=== PATIENT | female | born 1950 | race Caucasian/White ===

== ENCOUNTER 2020-09-01 14:39 | Outpatient (CLI) | payer MEDICARE, SELFPAY ==
--- NOTE | ~2020-09-01 | MM_ITS ---
EXAMINATION: MM screening bereket BI w carlos HISTORY: Screening TECHNIQUE: Craniocaudal and mediolateral oblique 3-D tomosynthesis images were obtained and synthetic 2-D images were generated. CAD analysis was submitted and interpreted. COMPARISON: Comparison to multiple prior studies sequentially, with oldest reviewed study dated 08/2011. BREAST PARENCHYMAL COMPOSITION: Breast composed of scattered areas of fibroglandular density. FINDINGS: There is a chronic mass in the central aspect of the right breast with new associated clust ered calcifications. The left breast is stable without evidence for malignancy. IMPRESSION: 1. New cluster of calcifications associated with chronic right breast mass located centrally. 2. Additional mammographic views and possible breast ultrasound are recommended. BI-RADS Category 0: Incomplete: Needs additional imaging evaluation. Reviewed, dictated and finalized at location A. IMPRESSION: 1. New cluster of calcifications associated with chronic right breast mass loca jun centrally. 2. Additional mammographic views and possible breast ultrasound are recommended . BI-RADS Category 0: Incomplete: Needs additional imaging evaluation.
--- NOTE | ~2020-09-01 | DEXA_ITS ---
Bone Density Report Name: Hawa Huynh Age: 70 Sex: Female Ethnicity: White Date of : 1950 Indication: postmenopausal; Referring Provider: shine velasquez Study: Bone densitometry was performed. Exam Date: September 01, 2020 Accession number: [id number] Bone Density: Region BMD T-score Z-score Classification AP Spine (L1-L4) 0.991 -0.5 1.6 Normal Femoral Neck (Left) 0.662 -1.7 0.1 Osteopenia Total Hip (Left) 0.784 -1.3 0.2 Osteopenia Total Hip Bilateral Avg 0.782 -1.3 0.2 Osteopenia Femoral Neck (Right) 0.644 -1.9 -0.1 Osteopenia Total Hip (Right) 0.780 -1.3 0.2 Osteopenia World Health Organization criteria for BMD impression classify patients as: Normal (T-score at or above -1.0), Osteopenia (T-score between -1.0 and -2.5), or Osteoporosis (T-score at or below -2.5). 10-year Fracture Risk(1): Major Osteoporotic Fracture 11% Hip Fracture 1.9% Reported Risk Factors: [place] (), Neck BMD=0.644, BMI=26.1 (1) FRAX(R) Version 3.08. Fracture probability calculated for an untreated patient. Fracture probability may be lower if the patient has received treatment. Previous Exams: Region Exam Age BMD T-score BMD Change BMD Change Date g/cm2 vs Baseline vs Previous AP Spine(L1-L4) 09/01/2020 70 0.991 -0.5 -0.025(-2.5%)* -0.025(-2.5%)* 11/09/2016 66 1.016 -0.3 Total Hip(Left) 09/01/2020 70 0.784 -1.3 -0.080(-9.2%)* -0.080(-9.2%)* 11/09/2016 66 0.863 -0.6 Total Hip(Right) 09/01/2020 70 0.780 -1.3 -0.051(-6.1%)* -0.051(-6.1%)* 11/09/2016 66 0.831 -0.9 *Denotes significance at 95% confidence level, LSC for AP Spine = 0.022 g/cm2, LSC for Total Hip = 0.027 g/cm2 Clinical Information Provided by Patient: Has used the following medications: Vitamin D Patient maximum height was 67 Menopause Age: 50 No regular weight bearing exercise Does not regularly consume dairy products Onset of menses at age 15 Number of children 4 Impression: The patient has low bone mass, based on the Right Femoral Neck T-score. The patient has an estimated ten-year risk of hip fracture of 1.9% and an estimated ten-year risk of major fracture of 11%, based on the WHO FRAX algorithm. The BMD for the AP Spine(L1-L4) decreased, changing by -2.5% since the last DXA exam. The BMD for the Total Hip(Left) decreased, changing by -9.2% since the last DXA exam. The BMD for the Total Hip(Right) decreased, changing by -6.1% since the last DXA exam.
== END 2020-09-01 14:40 | disposition home or self-care (01) ==
LOC: ANHIMG 14:51
DX: Z12.31 Encounter for screening mammogram for malignant neoplasm of breast (principal); Z78.0 Asymptomatic menopausal state; R92.8 Other abnormal and inconclusive findings on diagnostic imaging of breast; M85.852 Other specified disorders of bone density and structure, left thigh; M85.851 Other specified disorders of bone density and structure, right thigh
CPT/HCPCS: 77063; 77067; 77080

== ENCOUNTER 2021-12-06 08:48 | Outpatient (CLI) | payer MEDICARE, SELFPAY ==
--- NOTE | ~2021-12-06 | US_ITS ---
EXAMINATION: US carotid duplex BI DATE: 12/06/2021 10:04 INDICATION: Amaurosis fugax TECHNIQUE: Grayscale, color Doppler, and pulsed Doppler images of the cervical carotid arteries were obtained. The degree of vessel stenosis is placed in one of the following categories: normal, <50%, 5 0-69%, >=70% but less than near-occlusion, near-occlusion, or total occlusion. Note that percent sten osis relative to normal distal artery lumen diameter is indirectly measured from velocity measurement s as described by Alex, et al. Radiology 2003; [id number]:[id number]. COMPARISON: None. FINDINGS: RIGHT: The right common carotid artery (CCA) peak systolic velocity (PSV) is 88 cm/s. The right internal car otid artery (ICA) PSV is 85 cm/s. The right ICA end-diastolic velocity (EDV) is 32 cm/s. The right IC A/CCA PSV ratio is 1.0. Grayscale and color Doppler images yield an estimate of <50% diameter reducti on from plaque in the ICA. The external carotid artery (ECA) PSV is 86 cm/s. There is antegrade flow in the right vertebral artery. LEFT: The left CCA PSV is 108 cm/s. The left ICA PSV is 71 cm/s. The left ICA EDV is 36 cm/s. The left ICA/ CCA PSV ratio is 0.7. Grayscale and color Doppler images yield an estimate of <50% diameter reduction from plaque in the ICA. The ECA PSV is 80 cm/s. There is antegrade flow in the left vertebral artery . IMPRESSION: 1. <50% stenosis in the right internal carotid artery. 2. <50% stenosis in the left internal carotid artery. 3. Cardiac arrhythmia is present. Correlate with EKG. Reviewed, dictated and finalized at location B.
--- NOTE | ~2021-12-06 | MR_ITS ---
EXAMINATION: MRA brain wo con DATE: 12/06/2021 09:47 INDICATION: Headache. TECHNIQUE: Magnetic resonance angiography (MRA) of the brain was performed without intravenous contra st with T1-weighted SPGR by the 3D [id number] technique. Maximum intensity projection 3D-reconstr uctions were obtained. COMPARISON: None. FINDINGS: The right vertebral artery is dominant. There is no significant stenosis of basilar artery or the pos terior cerebral arteries. Left P1 posterior cerebral artery segment is small, a normal variant. The p osterior communicating arteries are normal. There is no significant stenosis of the intracranial inte rnal carotid arteries or anterior or middle cerebral arteries. Anterior communicating artery is barbie l. There is no aneurysm. IMPRESSION: 1. No aneurysm or significant intracranial arterial stenosis. Reviewed, dictated and finalized at location A.
--- NOTE | ~2021-12-06 | MR_ITS ---
EXAMINATION: MR brain/brain stem wo con DATE: 12/06/2021 09:46 INDICATION: Headache. TECHNIQUE: Magnetic resonance imaging (MRI) of the brain and brainstem was performed without intraven ous contrast. COMPARISON: None. FINDINGS: There is scattered foci of old microhemorrhage in the cerebral hemispheres. There are scatt ered areas of nonspecific increased T2-weighted signal intensity in the cerebral white matter. There is no acute ischemic infarct or abnormal mass lesion. The ventricles are normal in size. The paranasa l sinuses are clear. The orbits are normal. The mastoid air cells are normal. IMPRESSION: 1. Mild nonspecific cerebral white matter disease, which likely represents chronic small vessel ische mily disease. 2. Scattered foci of old microhemorrhage in the cerebral hemispheres, which may be seen with amyloid angiopathy. Reviewed, dictated and finalized at location A. IMPRESSION: 1. Mild nonspecific cerebral white matter disease, which likely represents management technician papito small vessel ischemic disease. 2. Scattered foci of old microhemorrhage in the cerebral hemispheres, which may be seen with amyloid angiopathy.
== END 2021-12-06 08:49 | disposition home or self-care (01) ==
LOC: ANHIMG 08:58
PROVIDERS: Visit Provider Internal Medicine Rheumatology
DX: G44.86 Cervicogenic headache (principal); I65.23 Occlusion and stenosis of bilateral carotid arteries; R93.0 Abnormal findings on diagnostic imaging of skull and head, not elsewhere classified
CPT/HCPCS: 70544; 70551; 93880

== ENCOUNTER 2023-02-08 12:44 | Emergency (ER) | payer MEDICARE, SELFPAY ==
[2023-02-08 12:50] VITALS: BP 119/87; PULSE 83; RESP 14; TEMP 36.9; O2SAT 97
[2023-02-08 13:02] VITALS: BP 119/87; PULSE 83; RESP 14; TEMP 36.9; O2SAT 97
--- NOTE | 2023-02-08 13:37 | ED.FEMALEGU ---
HPI - Female Genitourinary General Chief complaint: Urogenital-Female Stated complaint: poss UTI Time Seen by Provider: 02/08/23 13:10 Source: patient Mode of arrival: ambulatory Limitations: no limitations History of Present Illness HPI Narrative: Yoselyn is a 72-year-old female patient presenting to the clinic today with complaints of a possible urinary tract infection. She reports that she has been having fullness frequency, and urgency, of urination over the last 3 weeks. Reports that she is having some burning at the end of her stream. No known fever or chills. Does have some bladder fullness/discomfort. No back pain. Related Data Home Medications Medication Instructions Recorded Confirmed aspirin 81 mg tablet,delayed 81 mg PO DAILY 05/27/19 02/08/23 release (Reza Low Dose Aspirin) ascorbate calcium (vitamin C) 500 500 mg PO DAILY 10/17/20 02/08/23 mg tablet cholecalciferol (vitamin D3) 50 50 mcg PO DAILY 10/17/20 02/08/23 mcg (2,000 unit) capsule zinc 50 mg tablet 50 mg PO DAILY 10/17/20 02/08/23 atorvastatin 20 mg tablet 20 mg PO DAILY 02/08/23 02/08/23 metoprolol tartrate 25 mg tablet 12.5 mg PO BID 02/08/23 02/08/23 Allergies Allergy/AdvReac Type Severity Reaction Status Date / Time codeine Allergy Severe vomiting Verified 02/08/23 13:00 hydrocodone Allergy Severe Vomiting Verified 02/08/23 13:00 Penicillins Allergy Mild unkown Verified 02/08/23 13:00 propoxyphene Allergy Mild vomiting Verified 02/08/23 13:00 Review of Systems Review of Systems: Pertinent positives per HPI. Patient denies any fever, chills, rash, headache, visual changes, dizziness, cough, runny nose, sore throat, shortness of breath, chest pain, palpitations, nausea, vomiting, diarrhea, constipation, abdominal pain. [facility] Past Medical History Medical History (Updated 02/08/23 @ 13:40 by Clyde Cobian, RITU) Aortic valve stenosis Thoracic aortic aneurysm without rupture Family History Family History Father Family history of cardiovascular disease Family history of heart disease in male family member before age 55 Mother Cerebrovascular accident Other Hypertension Social History Social History Smoking status: Never smoker Alcohol intake: never Comments At the time of my signature, I reviewed and agree with the nursing past medical, surgical, social, and family history. There is no relevant family history pertinent to the patient complaint. Exam Narrative: General: Well-developed, well nourished, in no apparent distress. Head: Normocephalic, atraumatic. Cardio: Regular rate and rhythm, s1 and s2 normal, no murmur appreciated. Resp: Clear to auscultation bilaterally, no rhonchi, rales, wheezing or rubs. Abdomen: Soft, pliable, bowel sounds present in all quadrants, tender to palpation over the bladder, no organomegly, no CVAT tenderness. Course Course Emergency Course: Portions of this record may have been created with voice recognition software. Level of Care: Express Care Visit Vital Signs Vital signs: Vital Signs Temperature 36.9 C 02/08/23 12:50 Pulse Rate 83 02/08/23 12:50 Respiratory Rate 14 02/08/23 12:50 Blood Pressure 119/87 02/08/23 12:50 Pulse Oximetry 97 02/08/23 12:50 Oxygen Delivery Room Air 02/08/23 12:50 Temperature 36.9 C 02/08/23 13:02 Pulse Rate 83 02/08/23 13:02 Respiratory Rate 14 02/08/23 13:02 Blood Pressure 119/87 02/08/23 13:02 Pulse Oximetry 97 02/08/23 13:02 Oxygen Delivery Room Air 02/08/23 13:02 Vital signs reviewed MDM - Female Genitourinary MDM Narrative Medical decision making narrative: At the time of visit patient is resting comfortably on exam table. Urinalysis was performed and patient is positive for leukocytes and nitrates. Send in prescription for Bactrim. Supportive measures
== END 2023-02-08 13:44 | disposition home or self-care (01) ==
PROVIDERS: Emergency Provider Nurse Practitioner Family
DX: N30.00 Acute cystitis without hematuria (principal); I35.0 Nonrheumatic aortic (valve) stenosis; Z79.82 Long term (current) use of aspirin
CPT/HCPCS: 81003; 87077; 87086; 87147; 87186; 99213; G0463

== ENCOUNTER 2023-05-08 14:50 | Emergency (ER) | payer MEDICARE, SELFPAY ==
--- NOTE | 2023-05-08 14:53 | ED.FEMALEGU ---
HPI - Female Genitourinary General Chief complaint: Urogenital-Female Stated complaint: UTI Time Seen by Provider: 05/08/23 14:53 Source: patient Mode of arrival: ambulatory Limitations: no limitations History of Present Illness HPI Narrative: Hawa is a 72-year-old female patient presenting to the clinic today with complaints of possible urinary tract infection x1 week. She reports she is having burning at the end of her urination, frequency, and urgency. Denies any fever, chills, belly pain or back pain. Related Data Home Medications Medication Instructions Recorded Confirmed aspirin 81 mg tablet,delayed 81 mg PO DAILY 05/27/19 05/08/23 release (Reza Low Dose Aspirin) ascorbate calcium (vitamin C) 500 500 mg PO DAILY 10/17/20 05/08/23 mg tablet cholecalciferol (vitamin D3) 50 50 mcg PO DAILY 10/17/20 05/08/23 mcg (2,000 unit) capsule zinc 50 mg tablet 50 mg PO DAILY 10/17/20 05/08/23 atorvastatin 20 mg tablet 20 mg PO DAILY 02/08/23 05/08/23 metoprolol tartrate 25 mg tablet 12.5 mg PO BID 02/08/23 05/08/23 Allergies Allergy/AdvReac Type Severity Reaction Status Date / Time codeine Allergy Severe vomiting Verified 05/08/23 15:03 hydrocodone Allergy Severe Vomiting Verified 05/08/23 15:03 Penicillins Allergy Mild unkown Verified 05/08/23 15:03 propoxyphene Allergy Mild vomiting Verified 05/08/23 15:03 Review of Systems Review of Systems: Pertinent positives per HPI. Patient denies any fever, chills, rash, headache, visual changes, dizziness, cough, runny nose, sore throat, shortness of breath, chest pain, palpitations, nausea, vomiting, diarrhea, constipation, abdominal pain, or any urinary issues. [facility] Past Medical History Medical History Aortic valve stenosis Thoracic aortic aneurysm without rupture Family History Family History Father Family history of cardiovascular disease Family history of heart disease in male family member before age 55 Mother Cerebrovascular accident Other Hypertension Social History Social History (Reviewed 05/08/23 @ 15:14 by ALYSSA Medina Smoking status: Never smoker Alcohol intake: never Comments At the time of my signature, I reviewed and agree with the nursing past medical, surgical, social, and family history. There is no relevant family history pertinent to the patient complaint. Exam Narrative: General: Well-developed, well nourished, in no apparent distress. Head: Normocephalic, atraumatic. Cardio: Regular rate and rhythm, s1 and s2 normal, no murmur appreciated. Resp: Clear to auscultation bilaterally, no rhonchi, rales, wheezing or rubs. Abdomen: Soft, pliable, bowel sounds present in all quadrants, non-tender to palpation, no organomegly, no CVAT tenderness. Course Course Emergency Course: Portions of this record may have been created with voice recognition software. Level of Care: Express Care Visit Vital Signs Vital signs: Vital signs reviewed MDM - Female Genitourinary MDM Narrative Medical decision making narrative: At the time of visit patient is resting comfortably on the exam table. UA dip was obtained. Patient is nontoxic appearing. UA is positive for blood, leukocytes, and protein. Will send in prescription for Macrobid. Reviewed last culture and it came back with E coli arenous. Macrobid was described to the patient last time and got rid of the infection. Supportive measures were discussed with the patient and she voiced understanding of the discharge instructions and agrees to treatment plan. Return precautions were reviewed Differential Diagnosis Differential diagnosis: Likely urinary tract infection and cystitis Discharge Plan Discharge Clinical Impression: Acute UTI Patient Disposition: Home, Self-Care Condition: Stable Instructions: Antibiotic Form, Urina
[2023-05-08 14:56] VITALS: BP 150/80; PULSE 63; RESP 16; TEMP 37.4; O2SAT 96
[2023-05-08 15:04] VITALS: BP 150/80; PULSE 63; RESP 16; TEMP 37.4; O2SAT 96
== END 2023-05-08 15:13 | disposition home or self-care (01) ==
PROVIDERS: Emergency Provider Nurse Practitioner Family
DX: N39.0 Urinary tract infection, site not specified (principal); Z79.899 Other long term (current) drug therapy; Z79.82 Long term (current) use of aspirin
CPT/HCPCS: 81003; 87086; 87088; 99213; G0463

== ENCOUNTER 2024-04-06 08:30 | Emergency (ER) | payer MEDICARE, SELFPAY ==
--- NOTE | 2024-04-06 08:34 | ED.FEMALEGU ---
HPI - Female Genitourinary General Chief complaint: Urogenital-Female Stated complaint: Urinary Problem Time Seen by Provider: 04/06/24 08:32 Source: patient Mode of arrival: ambulatory Limitations: no limitations History of Present Illness HPI Narrative: Patient is a 73-year-old female who presents with frequency and urgency that started last night. Patient has urologist and was given Macrobid with refills. Patient has been on Macrobid 12/09, 02/13, 03/12, 03/25. Patient states she just finished her antibiotics and had 2 days of relief before symptoms started again. Patient has not urine culture the last few times she has been taking Macrobid. Denies any fever, chills, nausea, vomiting, diarrhea, back pain. MD elicited complaint: dysuria Related Data Home Medications Medication Instructions Recorded Confirmed aspirin 81 mg tablet,delayed 81 mg PO DAILY 05/27/19 05/08/23 release (Reza Low Dose Aspirin) ascorbate calcium (vitamin C) 500 500 mg PO DAILY 10/17/20 05/08/23 mg tablet cholecalciferol (vitamin D3) 50 50 mcg PO DAILY 10/17/20 05/08/23 mcg (2,000 unit) capsule zinc 50 mg tablet 50 mg PO DAILY 10/17/20 05/08/23 atorvastatin 20 mg tablet 20 mg PO DAILY 02/08/23 05/08/23 metoprolol tartrate 25 mg tablet 12.5 mg PO BID 02/08/23 05/08/23 Allergies Allergy/AdvReac Type Severity Reaction Status Date / Time codeine Allergy Severe vomiting Verified 05/08/23 15:03 hydrocodone Allergy Severe Vomiting Verified 05/08/23 15:03 Penicillins Allergy Mild unkown Verified 05/08/23 15:03 propoxyphene Allergy Mild vomiting Verified 05/08/23 15:03 Review of Systems Review of Systems: All systems reviewed & are unremarkable except as noted in HPI and below Constitutional: Constitutional: Denies chills, Denies fever(s), Denies headache(s), Denies malaise and Denies weakness Eyes: Eyes: Denies change in vision, Denies eye discharge and Denies irritation ENT: Denies otalgia, Denies headache(s), Denies nasal congestion, Denies nasal discharge, Denies sinus pain and Denies sore throat Cardiovascular: Cardiovascular: Denies chest pain, Denies edema, Denies palpitations and Denies dyspnea Respiratory: Respiratory: Denies cough and Denies dyspnea Gastrointestinal: Gastrointestinal: Denies abdominal pain, Denies diarrhea, Denies nausea and Denies vomiting Genitourinary: Genitourinary: Denies hematuria, Reports nocturia, Reports dysuria, Denies flank pain and Reports urinary urgency Musculoskeletal: Musculoskeletal: Denies back pain and Denies numbness Integumentary/Breasts: Skin/Breast: Denies pruritus and Denies rash Neurologic: Denies headache(s), Denies numbness and Denies weakness Psychiatric: Psychiatric: Reports no additional psychiatric complaints Endocrine: Endocrine: Denies palpitations PMFSH Past Medical History Medical History Aortic valve stenosis Thoracic aortic aneurysm without rupture Family History Family History Father Family history of cardiovascular disease Family history of heart disease in male family member before age 55 Mother Cerebrovascular accident Other Hypertension Social History Social History Smoking status: Never smoker Alcohol intake: never Comments At time of signature, agree with nursing past medical, surgical, social and family history. There is no relevant family history pertinent to the presenting complaint. Exam Const: General: cooperative, healthy appearing, comfortable, no acute distress and well nourished Nutritional Appearance: well nourished Orientation/consciousness: patient oriented x3 HENMT: Head: normocephalic and atraumatic Ears: external ears normal Face/Nose/Sinus: Normal external nose present, Normal nares present and normal facial exam Face and sinus: normal facial exam Eye
[2024-04-06 08:35] VITALS: BP 133/72; PULSE 57; RESP 17; TEMP 36.6; O2SAT 99
[2024-04-06 09:17] LABS: EDUAAPPEAR Cloudy; EDUABILI Negative (Negative); EDUABLOOD 2+ (Negative); EDUACOLOR1 Yellow; EDUAGLUCOSE Negative (Negative); EDUAKETONE Negative (Negative); EDUALEUKO 1+ (Negative); EDUANITRATE Negative (Negative); EDUAPROTEIN 2+ (Negative); EDUASPGRAVITY 1.025; EDUAUROBILI 0.2
== END 2024-04-06 09:22 | disposition home or self-care (01) ==
PROVIDERS: Emergency Provider Nurse Practitioner Family
DX: N30.01 Acute cystitis with hematuria (principal); B95.1 Streptococcus, group B, as the cause of diseases classified elsewhere; I35.0 Nonrheumatic aortic (valve) stenosis
CPT/HCPCS: 81003; 87086; 99213; G0463